=== PATIENT | female | born 1995 | race Caucasian/White ===

== ENCOUNTER → 2020-07-26 10:10 | Outpatient (BNVA) | payer MEDICAID, SELFPAY | PROVIDERS: PCP Family Medicine; Visit Provider Nurse Practitioner Women's Health | DX: Z34.90 Encounter for supervision of normal pregnancy, unspecified, unspecified trimester (principal) | CPT/HCPCS: 80053; 80307; 82950; 84315; 85027; 86592; 86762; 86803; 86850; 86900; 87340; 87806 ==

== ENCOUNTER 2021-01-27 12:34 | Outpatient (CLI) | payer MEDICAID, SELFPAY ==
[2021-01-27 12:52] VITALS: BP 132/76; PULSE 92
[2021-01-27 12:59] VITALS: RESP 18
[2021-01-27 13:00] VITALS: BMI 55.0
[2021-01-27 13:07] VITALS: TEMP 36.6
[2021-01-27 13:12] VITALS: BP 133/73; PULSE 87
== END 2021-01-27 13:40 | disposition home or self-care (01) ==
LOC: OPOB 12:38 → OBGYN 12:39
PROVIDERS: PCP Family Medicine; Visit Provider Family Medicine
DX: O24.419 Gestational diabetes mellitus in pregnancy, unspecified control (principal); Z3A.00 Weeks of gestation of pregnancy not specified
CPT/HCPCS: 59025; 99211

== ENCOUNTER 2021-02-03 11:10 | Outpatient (CLI) | payer MEDICAID, SELFPAY ==
[2021-02-03 11:55] VITALS: BP 124/73; PULSE 81
[2021-02-03 12:03] VITALS: RESP 18; TEMP 36.6; BMI 55.4
[2021-02-03 12:15] VITALS: BP 134/83; PULSE 82
== END 2021-02-03 12:21 | disposition home or self-care (01) ==
LOC: OPOB 11:27 → OBGYN 11:29
PROVIDERS: PCP Family Medicine; Visit Provider Family Medicine
DX: O24.419 Gestational diabetes mellitus in pregnancy, unspecified control (principal); Z3A.00 Weeks of gestation of pregnancy not specified
CPT/HCPCS: 59025; 99211

== ENCOUNTER 2021-02-10 10:51 | Outpatient (CLI) | payer MEDICAID, SELFPAY ==
[2021-02-10] VITALS (8 sets, daily range): BP systolic 142–152; BP diastolic 76–95; PULSE 76–87; RESP 22–222; TEMP 36.4–36.6; BMI 56.8
== END 2021-02-10 12:05 | disposition home or self-care (01) ==
LOC: OPOB 10:53 → OBGYN 10:54
PROVIDERS: PCP Family Medicine; Visit Provider Family Medicine
DX: O24.419 Gestational diabetes mellitus in pregnancy, unspecified control (principal); Z3A.00 Weeks of gestation of pregnancy not specified
CPT/HCPCS: 59025

== ENCOUNTER 2021-02-17 10:54 | Outpatient (CLI) | payer MEDICAID, SELFPAY ==
[2021-02-17 11:00] VITALS: BMI 57.0
[2021-02-17 11:26] VITALS: BP 139/80; PULSE 82
[2021-02-17 11:47] VITALS: BP 161/89; PULSE 93
[2021-02-17 11:48] VITALS: BP 151/85; PULSE 88
== END 2021-02-17 11:55 | disposition home or self-care (01) ==
LOC: OPOB 11:00 → OBGYN 11:16
PROVIDERS: PCP Family Medicine; Visit Provider Family Medicine
DX: O24.419 Gestational diabetes mellitus in pregnancy, unspecified control (principal); Z3A.00 Weeks of gestation of pregnancy not specified
CPT/HCPCS: 59025; 99211

== ENCOUNTER 2021-02-20 18:05 | Inpatient (IN) | payer MEDICAID, SELFPAY ==
[2021-02-20] VITALS (26 sets, daily range): BP systolic 108–200; BP diastolic 56–109; PULSE 84–101; RESP 16–18; O2SAT 100; BMI 57.7
[2021-02-20 18:59] LABS: Basophils % 0.4 %; Eosinophils # 0.1 10^3/uL (0.0-0.8); Eosinophils % 0.6 %; Hematocrit 36.2 % (37.0-47.0); Hemoglobin 12.1 g/dL (11.5-15.3); Lymphocytes # 2.6 10^3/uL (0.8-4.8); Lymphocytes % 24.2 %; Mean Corpuscular HGB Conc 33.4 g/dL (30.0-36.0); Mean Corpuscular Hemoglobin 29.8 pg (28.0-34.0); Mean Corpuscular Volume 89.2 fL (81-99); Monocytes # 0.7 10^3/uL (0.2-0.9); Monocytes % 6.3 %; Neutrophils % 68.1 %; Nucleated Red Blood Cells % 0 %; Platelet Count 284 10^3/cmm (130-400); Red Blood Count 4.06 10^6/uL (4.1-5.3); Red Cell Distribution Width 13.8 % (12.1-15.1); White Blood Count 10.9 10^3/uL (4.0-10.0)
[2021-02-20] MEDS: labetalol 5 mg/mL SDV 20mL 20 MG IVP (19:18)
[2021-02-20] MEDS: labetalol 5 mg/mL SDV 20mL 40 MG IVP (19:59)
[2021-02-20 20:14] LABS: Urine Creatinine 165 mg/dL (28-217)
[2021-02-20 20:25] LABS: Add Urine Microscopic? YES; Bilirubin Urine Neg (Negative); Blood Urine 2+ (Negative); Glucose Urine UA Norm (Normal); Ketones Urine Negative (Negative); Leukocyte Esterase Urine Trace (Negative); Nitrate Urine Negative (Negative); Protein Urine 3+ (Negative); Urine Appearance Hazy (CLEAR); Urine Color Yellow (Yellow); Urobilinogen Urine Norm (Negative); pH Urine 7 (5-7)
[2021-02-20 20:26] LABS: Squamous Epithelial Cell Urine 40-55 /hpf (0-5); WBC Urine 15-25 /hpf (0-5)
[2021-02-20 20:27] LABS: Add Urine Culture? No; Bacteria Urine TRACE /hpf
[2021-02-20 20:28] LABS: UPRO/UCREAT Ratio 2.42 mg/mg CR; Urine Protein Random 399 mg/dL
[2021-02-20] MEDS: fentaNYL 50 mcg/mL INJ 2mL IVP (21:20)
[2021-02-20 21:23] LABS: Alanine Aminotransferase 11 U/L (0-33); Alkaline Phosphatase 98 IU/L (35-105); Anion Gap 15.5 (5-19); Aspartate Amino Transferase 14 U/L (0-32); Blood Urea Nitrogen 6 mg/dL (6-20); Carbon Dioxide 21 mmol/L (22-29); Chloride 105 mmol/L (98-107); Globulin 2.1 g/dL (1.3-4.6); Glomerular Filtration Rate 266.9 mL/min (90-130); Glucose 118 mg/dL (65-115); Osmolality Calculated 285 mOsm/kg (285-295); Potassium 3.5 mmol/L (3.5-5.1); Sodium 138 mmol/L (136-145); Total Bilirubin 0.2 mg/dL (0.15-1.2); Total Protein 5.1 g/dL (6.6-8.7); Uric Acid 1.8 mg/dL (2.4-5.7)
[2021-02-20] MEDS: miSOPROStol 100 mcg tablet 25 MCG VAGINAL (21:30)
[2021-02-20] MEDS: magnesium sulfate premix 4 GM/100 ML PREMIX IV (21:47)
[2021-02-20] MEDS: dextrose 5%-lactated ringers 1,000 ML 125 ML IV (21:47)
[2021-02-20] MEDS: magnesium sulfate premix 20 GM/500 ML BAG IV (22:00)
[2021-02-20 22:03] LABS: Glucose Point of Care 118 mg/dL (70-110)
[2021-02-20 23:54] LABS: Magnesium Level (OB Only) 1.4 mg/dL (5.0-7.5)
[2021-02-21] VITALS (81 sets, daily range): BP systolic 111–217; BP diastolic 56–104; PULSE 69–109; RESP 16–18; TEMP 35.8–36.8; O2SAT 93–100
[2021-02-21] MEDS: miSOPROStol 100 mcg tablet 25 MCG VAGINAL (01:33)
[2021-02-21] MEDS: dextrose 5%-lactated ringers 1,000 ML 125 ML IV ×3 (01:35→23:33)
[2021-02-21 04:43] LABS: Magnesium Level (OB Only) 3.9 mg/dL (5.0-7.5)
[2021-02-21] MEDS: oxytocin 30 UNIT/500 ML BAG IV (06:30)
[2021-02-21] MEDS: magnesium sulfate premix 20 GM/500 ML BAG IV ×2 (06:36→18:18)
[2021-02-21 06:48] LABS: Glucose Point of Care 114 mg/dL (70-110)
--- NOTE | 2021-02-21 07:29 | P.HP_ITS ---
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 She arrived for induction because of her gestational diabetes. After arrival to hospital, she was noted to have a markedly elevated blood pressures. As result a preeclamptic panel was done, and she was found to have an abnormal protein creatinine ratio. As result she was put on the blood pressure protocol, and was placed on magnesium. Present Details : 1 Labs Rubella: Immune RPR: Negative GBS: Negative Review of Systems General: Reports: 10 or more systems reviewed and unremarkable except in HPI and below Const: Reports: fatigue; Denies: fever(s) Eyes: Denies: change in vision Card: Denies: chest pain Musc: Reports: back pain Garo/Lymph: Denies: easy bruising Medications/Allergies Home Medications Medication Instructions Recorded Confirmed Last Taken Type prenat.vits,yanet,qno-lflj-qayhr 1 tab PO DAILY 07/12/20 02/20/21 02/20/21 07:30 History glyburide 1.25 mg PO BID 01/27/21 02/20/21 02/20/21 07:30 History Allergies Allergy/AdvReac Type Severity Reaction Status Date / Time No Known Allergies Allergy Verified 02/21/21 13:05 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 PFSH: Medical History No pertinent past medical history neghx: htn,dm,thyroid,dvt/pe,herpes----- denies partner with herpes PCOS (polycystic ovarian syndrome) Surgical History Hx of fracture of clavicle Family History Family/Other Breast cancer Paternal aunt-- unknown dx age Diabetes Paternal Great Grandmother Heart disease Paternal Uncle Father Diabetes Heart disease Hypertension Grandmother Ovarian cancer, Onset Age: 30 PGM Grandfather Heart disease Paternal Hypertension Paternal Mother Hypertension Denies family history of Colon cancer Clotting disorder Bleeding disorder Uterine cancer Thyroid disease Stroke Social History Additional social history: - Tobacco use: Never Alcohol use: Never Drug use: Never Other Female Reproductive History: Date of Last Menstrual Period: 04/30/20 History History History 1 Term 0 Miscarriages/Ectopic 0 0 Living Children 0 Care DANIA Calculator Estimated Delivery Date Method Current WG Current Estimate 02/25/21 Ultrasound #1 39w 3d Other Estimates 02/19/21 LMP (Uncertain) 40w 2d Expected Delivery Route/Plan Vaginal Specific Issues/Plans * PCOS * OBESITY Vitals/I&O/Wt Last Vital Signs Pulse 83 02/21/21 07:15 Resp 18 02/21/21 03:49 BP 142/72 02/21/21 07:15 Pulse Ox 100 02/21/21 03:49 02/20/21 02/21/21 02/21/21 22:59 06:59 14:59 Intake Total 430 / 430 Output Total 40 / 40 380 / 420 Balance -40 / -40 50 / 10 Weight last 48 hrs Weight 326 lb Physical Exam Const: COMMON NORMALS: patient oriented x3 and alert GENERAL APPEARANCE: anxious HENMT: COMMON NORMALS: moist oral mucous membranes HEAD & SCALP: normal to inspection Chest: COMMONS NORMALS: normal inspection of the chest Resp: COMMON NORMALS: clear to auscultation bilaterally AUSCULTATION: clear to auscultation bilaterally Cardio: COMMON NORMALS: regular rate and regular rhythm RATE: regular rate RHYTHM: regular rhythm GI: INSPECTION: Yes normal to inspection and Yes other (Gravid) Extremity: COMMON NORMALS: normal to inspection GENERAL: Yes edema (Trace) Neuro: COMMON NORMALS: patient oriented x3, moves all extremities and no sensory deficits noted SENSORIUM/ORIENTATION: Yes alert Psych: COMMON NORMALS: mental status grossly normal Skin: COMMON NORMALS: no rashes or lesions noted GENERAL SKIN EXAM: no rashes or lesions noted Urinary Catheter Management^: [place] Latex Free: Cath Placed During This Visit: yes Urinary Catheter Date of Insertion: 02/20/21 Urinary Catheter Time of Insertion: 21:25 Data : 02/20/21 18:31 02/20/21 20:58 A&P Assessment and plan (1) 39 weeks gestation of : We are inducing the patient with Cytotec followed by Pitociin When the child's head becomes well applied, I will consider an amniotomy as well. Status: Acute (2) Preeclampsia: We have placed the patient on magnesium due to her blood pressures as well as her protein creatinine ratio. Thankfully she is not having any other symptoms of preeclampsia at this time. Status: Acute (3) Gestational diabetes: Her blood sugars have been well controlled. We will continue to monitor her blood sugars intermittently during her hospital stay we see numbers that are getting higher we will evaluate a more aggressive approach. Status: Acute Attestations Medical Necessity Statement*: The patient will require hospital stay for induction as well as a stay including magnesium. I anticipate she will be in the hospital for 2-3 more days depending on how well her induction goes. Coding Level of Care Code Acute Knockdown Man for Topher Fwd Exam Comprehensive Diagnoses 39 weeks gestation of Z3A.39 Preeclampsia O14.90 Gestational diabetes O24.419
[2021-02-21] MEDS: acetaminophen 325 mg Tablet 650 MG PO (08:05)
[2021-02-21] MEDS: fentaNYL 50 mcg/mL INJ 2mL IVP ×2 (08:33→10:17)
[2021-02-21] MEDS: lactated ringers 1,000 ML 999 ML IV ×2 (10:13→13:04)
--- NOTE | 2021-02-21 11:00 | ANES.PROC ---
Anesthesia Procedures Procedure/Date: 02/21/21 Epidural: Time Out Performed: Yes Consents Signed: Procedure Consent and NPO Consent Consent: requested by attending/covering physician, from patient, risks and benefits reviewed and patient agrees to proceed Lumbar Level: L3-L4 Epidural position: sitting Epidural procedure: sterile prep of area, 1% lidocaine to numb the area, 18 g needle, negative for paresthesia passed, neg for paresthesia, test dose given, 1.5% xylocaine 1:200k epi (5 cc), 0.2% Ropivacaine bolus ml (5 cc), placed PCEA, no systemic response, sterile dressing applied, L.U.D. no apparent complications and 0.2% Ropiavacaine @ mls/hr (13) Additional Comments: BRIAN at 6 cm, threaded to 12 cm. patient reports improvement in contraction pains
[2021-02-21 11:19] LABS: Magnesium Level (OB Only) 4.7 mg/dL (5.0-7.5)
[2021-02-21] MEDS: metoclopramide 5 mg/mL SDV 2 mL 10 MG IVP (13:02)
[2021-02-21] MEDS: citric acid-sodium citrate 30 mL UDC PO (13:02)
[2021-02-21] MEDS: famotidine 20 mg/2 mL INJ IVP (13:03)
--- NOTE | 2021-02-21 14:27 | PC.NURSE ---
PT IN OR
--- NOTE | 2021-02-21 14:56 | P.PCN_ITS ---
PACU note PACU note: VSS, Good respiratory effort, report to RURAL ELECTRIFICATION ENGINEER Post-Anesthesia Exam: awake
--- NOTE | 2021-02-21 14:56 | PM.PACU ---
PACU note PACU note: VSS, Good respiratory effort, report to CLIENT SERVICES ASSISTANT Post-Anesthesia Exam: awake
--- NOTE | 2021-02-21 16:27 | PC.NURSE ---
1500 pt remains i or in recovery phrase.
[2021-02-21 16:48] LABS: Magnesium Level (OB Only) 4.6 mg/dL (5.0-7.5)
--- NOTE | 2021-02-21 18:00 | ANE.PACU2 ---
Inpatient post-anesthesia follow up: Airway intact: Yes Vital signs: Temperature 97.8 F Pulse Rate 103 Respiratory Rate 18 Blood Pressure 147/68 Pulse Oximetry 96 Oxygen Delivery Me thod Room Air Oxygen Flow Rate Fraction of Inspir ed Oxygen Hydration adequate: Yes Nausea and vomiting: No Pain level: 3 Mental status: Baseline
--- NOTE | 2021-02-21 18:59 | PM.OP ---
Operative Report Date of procedure: February 21, 2021 Pre-op Diagnosis: 1. decelerations 2. Failure to progress Pre-op Diagnosis: 3. Gestational diabetes 4. Preeclampsia Post-op diagnosis: same Procedure Done: Lower transverse section Specimens removed/disposition: 1. Male with a weight of 7 pounds 1 ounce and Apgars of 5 7 and 8 2. Placenta with three-vessel cord delivered intact Pathology: none sent Surgeon: Florencio Espinoza Anesthesia: Epidural Estimated blood loss (mL): 1,200 Complications: None Condition: stable Disposition: floor (OB) Brief History: Refer to history and physical Procedure: The patient was brought back to the operating room where she was prepped and draped in usual sterile fashion. Anesthesia was found to be adequate. A transverse skin incision was then made approximately 4 cm below the umbilicus (above the pannus) with a #10 blade. I then dissected down to the underlying subcutaneous tissue until arriving at the prerectal fascia. The fascia was then nicked with the scalpel bilaterally. The fascial incisions were then carried laterally with Garcia scissors. Attention was then turned to the superior aspect of the incision which was grasped with kochers and tented up away from the underlying rectus abdominis muscles. The muscles were then dissected away from the fascia manually, and later with Garcia scissors. Attention was then turned to the inferior aspect of the incision, and the fascia was dissected away from the underlying muscle in similar fashion. The rectus abdominis muscles were then spread manually. The peritoneum was entered manually. Excellent visualization of the uterus was noted. The Daniel O was then used to further obtain visualization of the uterus. A lower transverse uterine incision was then made with a #10 blade. Upon arriving at the intrauterine cavity, the uterine incision was then extended manually. The infant was noted to be in vertex position, and firmly applied on the pelvic floor of the mother. After multiple attempts at dislodging the baby from the pelvic floor, I was able to deliver the bab. After delivery of the head, the mouth and nose were suctioned at the site of the incision. There was no meconium. There was no nuchal cord. The baby was then completely delivered and placed on the abdomen. The cord was cut and clamped. The baby was then handed to Dr. Mauricoi and the waiting nurse. The placenta was removed intact. The intrauterine cavity was cleansed of any remaining debris. I then carefully examined the incision and found a tear extending from the left lateral aspect of the incision extending downward onto the anterior aspect of the uterus. I used a ring forceps to grasp the apex of the tear and carefully reapproximated the tear up to the point of the original incision. The uterine incision was reapproximated in 2 layers. The first layer was performed with 0 Vicryl in a running locked stitch. The second layer was an imbricating stitch also using 0 Vicryl. I then carefully examined repair to tear and uterine incision and found excellent hemostasis.. The peritoneum was then irrigated with warm saline. I reexamined the uterine incision, and tear and found it to be hemostatic. The fascia was then reapproximated using 0 Vicryl in running stitch. A SKY drain was then put in place. A running stitch was then used to reapproximate the subcutaneous tissue. The skin was reapproximated with a running stitch using a Ezekiel needle.. A sterile dressing was placed. All counts were correct x2. Both the mother and baby were in stable condition. Associated Problem List Diagnoses (1) Gestational diabetes: (2) Preeclampsia: (3) 39 weeks gestation of : (4) heart rate decelerations affecting management of mother: (5) Failure to progress in labor:
[2021-02-21 19:20] LABS: Glucose Point of Care 122 mg/dL (70-110)
[2021-02-21 22:48] LABS: Glucose Point of Care 132 mg/dL (70-110)
[2021-02-21] MEDS: ketorolac 30 mg/mL INJ IVP (23:32)
[2021-02-22] VITALS (14 sets, daily range): BP systolic 96–149; BP diastolic 50–90; PULSE 92–119; RESP 16–18; TEMP 36.6–37.1; O2SAT 94–96
[2021-02-22 03:42] LABS: Hematocrit 28.8 % (37.0-47.0); Hemoglobin 9.5 g/dL (11.5-15.3); Mean Corpuscular Hemoglobin 30.4 pg (28.0-34.0); Mean Platelet Volume 11.2 fL (7.4-10.4); Platelet Count 228 10^3/cmm (130-400); Red Blood Count 3.13 10^6/uL (4.1-5.3); Red Cell Distribution Width 14.4 % (12.1-15.1); White Blood Count 13.7 10^3/uL (4.0-10.0)
[2021-02-22 04:10] LABS: Magnesium Level (OB Only) 4.9 mg/dL (5.0-7.5)
[2021-02-22] MEDS: magnesium sulfate premix 20 GM/500 ML BAG IV (04:29)
--- NOTE | 2021-02-22 07:25 | PM.OBGYPN ---
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 She is also on magnesium at 2 g an hour. She has done remarkably well overnight. Her bleeding has been within normal limits. She has been breast-feeding. Her blood pressures have improved but are still elevated. Overall she has done better than expected. Labor: Station: -3 Vitals/I&O/Wt Last Vital Signs Temp 97.5 F L 02/21/21 22:30 Pulse 99 02/22/21 06:00 Resp 16 02/22/21 06:00 BP 145/90 02/22/21 06:00 Pulse Ox 96 02/22/21 06:00 02/21/21 02/22/21 02/22/21 22:59 06:59 14:59 Intake Total 1060 / 4816.317 440 / 5256.317 Output Total 781 / 2501 630 / 3131 Balance 279 / 2315.317 -190 / 2125.317 Weight last 48 hrs Weight 326 lb Physical Exam Narrative: EXAM NARRATIVE: She is in no acute distress Lungs are clear auscultation bilaterally Her heart has a regular rate and rhythm Her fundus is below the umbilicus and firm Her dressing is clean, dry and intact Her extremities have 1+ edema Urinary Catheter Management^: [place] Latex Free: Cath Placed During This Visit: yes Reason for Continuing Indwelling Catheter: Accurate Measurement of Urinary Output in Critically Ill Patients Urinary Catheter Date of Insertion: 02/20/21 Urinary Catheter Time of Insertion: 21:25 Data : 02/22/21 03:30 02/20/21 20:58 Other data: This morning her white blood count was 13.7 with a hemoglobin of 9.5 and a platelet count of 228. Her blood sugars have all been less than 140. A&P Assessment and plan (1) Preeclampsia: Patient is still on magnesium for 24 hours post delivery. Overall she has done very well. There have been no problems. After she passes flatus we will consider advancing her diet. Status: Acute (2) Gestational diabetes: Status: Acute (3) Status post : Status: Acute Attestations Medical Necessity Statement*: If the patient continues to do well she may be able to be discharged home tomorrow. Coding Level of Care Code Acute Delivery Driver/Customer Service for [facility] Juan C Diagnoses Preeclampsia O14.90 Gestational diabetes O24.419 Status post Z98.891
[2021-02-22] MEDS: prenatal vitamin Capsule 1 CAP PO (10:03)
[2021-02-22] MEDS: ferrous sulfate EC 325 mg Tablet PO ×2 (10:03→17:26)
[2021-02-22] MEDS: docusate sodium 100 mg Capsule PO (10:03)
[2021-02-22 10:05] LABS: Glucose Point of Care 138 mg/dL (70-110)
[2021-02-22] MEDS: HYDROcodone-acetaminophen 5-325 mg Tablet PO ×2 (11:06→17:27)
[2021-02-22] MEDS: ibuprofen 800 mg tablet PO ×2 (11:06→17:26)
[2021-02-22] MEDS: dextrose 5%-lactated ringers 1,000 ML 125 ML IV (12:37)
--- NOTE | 2021-02-22 19:00 | PC.NURSE ---
SKY drain output
[2021-02-22 22:53] LABS: Glucose Point of Care 121 mg/dL (70-110)
[2021-02-23] MEDS: HYDROcodone-acetaminophen 5-325 mg Tablet PO ×3 (03:43→13:14)
[2021-02-23 05:00] VITALS: BP 149/79; PULSE 93; RESP 17; O2SAT 95
--- NOTE | 2021-02-23 07:00 | PC.NURSE ---
SKY drain output
[2021-02-23] MEDS: ferrous sulfate EC 325 mg Tablet PO (08:40)
[2021-02-23] MEDS: ibuprofen 800 mg tablet PO ×2 (08:40→15:53)
[2021-02-23] MEDS: prenatal vitamin Capsule 1 CAP PO (08:40)
[2021-02-23 09:40] VITALS: BP 153/72; PULSE 98; RESP 16; TEMP 37.1
--- NOTE | 2021-02-23 17:58 | PM.OBGYDC ---
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 As a part of her intake she was noted to have a high blood pressure, and a protein creatinine ratio was done which was found to be elevated as well. She then had a full preeclamptic panel performed. We put her on the hypertension protocol. She was placed on Cytotec. Then an amniotomy was performed. She had epidural placed. Pitocin was also used to augment labor.. During this process the infant demonstrated multiple episodes of decelerations. Her cervix slowly changed to 3 cm dilated., And stagnated at 3 cm dilated for over 4 hours. Given the infant's tendency towards decelerations, and the mother's lack of change, the decision was made to proceed with a section. The was performed and was unremarkable. Her course was also relatively unremarkable. Her blood pressures remained somewhat high despite IV treatment. Her systolic blood pressure was in the 140s 150s. Her blood sugars were in the 140s or less overall. Her post operative course was relatively unremarkable. She ambulated reasonably. She passed flatus. Her diet was advanced without difficulty. She was on magnesium sulfate for 24 hours post delivery. Her bleeding was within normal limits. She struggled with breast-feeding at first, but ultimately was able to do better with a nipple shield. The Mejia-Armstrong drain was removed on the second postoperative day and demonstrated a continual decline in fluid. Information Peripartum Data: Infant Delivery Method: Physical Exam Narrative: EXAM NARRATIVE: She is in no acute distress Lungs are clear auscultation bilaterally Her heart has a regular rate and rhythm Her fundus is below the umbilicus and firm Her dressing is clean, dry and intact Her extremities have trace edema The Mejia-Armstrong drain has 15 cc of serosanguineous fluid has not been changed for over 6 hours. Urinary Catheter Management^: [place] Latex Free: Cath Placed During This Visit: yes, but has since been removed by the nurse Reason for Continuing Indwelling Catheter: Decision to DC Catheter Urinary Catheter Date of Insertion: 02/20/21 Urinary Catheter Time of Insertion: 21:25 Date Urinary Catheter Removed: 02/22/21 Time Urinary Catheter Discontinued: 14:15 Discharge Data Data Completed and Pending: Labs from last 24 hours 02/22/21 22:48 POC Glucose 121 H Vitals: Last Vital Signs Temp 98.8 F 02/23/21 09:40 Pulse 98 02/23/21 09:40 Resp 16 02/23/21 09:40 BP 153/72 02/23/21 09:40 Pulse Ox 95 02/23/21 05:00 Discharge Plan Discharge Patient Disposition: Home Condition: Stable Prescriptions: New ibuprofen 800 mg Tablet 800 mg PO TID Qty: 45 RF: 0 hydrocodone-acetaminophen 5-325 mg Tablet 1 - 2 tab PO Q4H PRN (Reason: Moderate To Severe Pain) Qty: 30 RF: 0 DOK 100 mg Capsule 100 mg PO BID Qty: 14 RF: 0 Continued prenat.vits,yanet,bzh-duor-kqacl Tablet 1 tab PO DAILY RF: 0 Discontinued glyburide 1.25 mg Tablet 1.25 mg PO BID RF: 0 Discharge Orders: Discharge Order (Routine); Ordered 02/23/21 Ordered By: Florencio Espinoza Referrals: Florencio Espinoza MD [Physician] - 03/03/21 11:30 am (Also set up an appointment for 6-week follow-up) Discharge Diet: Diabetic Discharge Activity: Limit activity as instructed Patient Instructions: , Your Baby (GEN), and the Working Mom (GEN), How to Hold and Breastfeed Your Baby (GEN), and Nipple Soreness (GEN), and Plugged Ducts (GEN), Pre-eclampsia and Eclampsia (GEN), OB - Alexis/Aga, OB Discharge Report, OB Food/Drug Interaction Guide, Opioid Safety, Abnormal Bleeding, Depression Discharge Attestations HOUSEHOLD APPLIANCE REPAIRER Time Spent in Discharge Care*: less than 30 min Coding Level of Care Code Acute Blood Collector for Chg Fwd Diagnoses Preeclampsia O14.90 Gestational diabetes O24.419 Status post Z98.891
== END 2021-02-23 16:15 | disposition home or self-care (01) | DRG 788 ==
PROVIDERS: Admitting Provider Family Medicine; PCP Family Medicine; Visit Provider Family Medicine
PROC: 10D00Z1 Extraction of Products of Conception, Low, Open Approach (ICD-10-PCS; CPT 59514; principal; 2021-02-21 13:10)
DX: O76 Abnormality in fetal heart rate and rhythm complicating labor and delivery (principal); O32.4XX0 Maternal care for high head at term, not applicable or unspecified; O24.425 Gestational diabetes mellitus in childbirth, controlled by oral hypoglycemic drugs; O14.94 Unspecified pre-eclampsia, complicating childbirth; O99.284 Endocrine, nutritional and metabolic diseases complicating childbirth; E28.2 Polycystic ovarian syndrome; Z3A.39 39 weeks gestation of pregnancy; Z37.0 Single live birth
CPT/HCPCS: 12345; 36415; 36416; 51702; 59025; 80053; 81001; 82570; 82962; 83735; 84156; 84550; 85025; 85027; 98960; 99211; J0690; J1885; J2274; J2405; J2765; J2795; J3010; J3475; J3490

== ENCOUNTER 2021-02-27 09:18 | Emergency (ER) | payer MEDICAID, SELFPAY ==
[2021-02-27 09:26] VITALS: BP 198/107; PULSE 102; RESP 18; TEMP 36.7; O2SAT 96; BMI 56.7
--- NOTE | 2021-02-27 09:46 | W.ED.WOUNDLC ---
HPI - Wound/Laceration General: Chief Complaint: Wound/Laceration Stated Complaint: C Section Incision Reopened Time Seen by Provider: 02/27/21 09:21 History of Present Illness: HPI narrative: 5-year-old female who is 6 days postop section. She has some dehiscence of her wound. She initially had a Mejia-Armstrong in place that was removed and now she started getting serous drainage the left lateral portion of the wound is dehisced she not had any fever sweats or chills because the holidays she was not able to get into see her doctor so she presented here. She denies any purulent drainage no dysuria urgency or frequency. She did have preeclampsia and gestational diabetes during previous . Onset (ago): day(s) Location: abdomen Place: home Context: other (Surgical incision site) Associated symptoms: Denies chills, fever(s), foreign body sensation, inability to move, nausea, numbness, pain, syncope or vomiting Review of Systems Const: Denies: fever(s) or chills ENMT: Denies: throat pain, ear or mastoid pain, nasal discharge or nasal congestion Card: Denies: syncope Resp: Denies: dyspnea, productive cough or non-productive cough GI: Denies: nausea or vomiting : Denies: flank pain, difficulty voiding, dysuria, urinary frequency or urinary urgency Skin/Breast: Denies: rash or pruritus PFSH ED PFSH: Medical History No pertinent past medical history neghx: htn,dm,thyroid,dvt/pe,herpes----- denies partner with herpes PCOS (polycystic ovarian syndrome) Surgical History (Updated 02/27/21 @ 09:57 by Vince Nunez DO) Hx of fracture of clavicle Family History Family/Other Breast cancer Paternal aunt-- unknown dx age Diabetes Paternal Great Grandmother Heart disease Paternal Uncle Father Diabetes Heart disease Hypertension Grandmother Ovarian cancer, Onset Age: 30 PGM Grandfather Heart disease Paternal Hypertension Paternal Mother Hypertension Denies family history of Colon cancer Clotting disorder Bleeding disorder Uterine cancer Thyroid disease Stroke Social History Additional social history: - Tobacco use: Never Alcohol use: Never Drug use: Never Female Reproductive History: Date of last menstrual period: 05/15/20 Physical Exam Const: COMMON NORMALS: no acute distress GENERAL APPEARANCE: cooperative and comfortable ORIENTATION/CONSCIOUSNESS: Yes awake, Yes oriented to person, Yes oriented to place and Yes oriented to time HENMT: COMMON NORMALS: normocephalic, atraumatic and hearing grossly normal bilaterally HEAD & SCALP: normocephalic and atraumatic Neck/C-Spine: COMMON NORMALS: no JVD Resp: COMMON NORMALS: normal respiratory effort, No retractions, No use of accessory muscles and clear to auscultation bilaterally AUSCULTATION: clear to auscultation bilaterally Cardio: COMMON NORMALS: no JVD, regular rate, regular rhythm and No murmurs present (Cardio) RATE: regular rate RHYTHM: regular rhythm GI: COMMON NORMALS: Soft to palpation and No hepatosplenomegaly present AUSCULTATION: Yes normoactive bowel sounds PALPATION: Yes Soft to palpation, No Tenderness to palpation present (GI), No Guarding due to palpation present (GI) and Yes No hepatosplenomegaly present OTHER: Dehiscence with exposure of subcu sutures in the left lateral side. There is no active drainage some mild anasarca but there is no erythema no purulent drainage patient has a OB pad taped on the inside of her pants which has serous drainage on it. Extremity: COMMON NORMALS: normal to inspection, capillary refill normal, no clubbing, cyanosis or edema, no calf tenderness and no pedal edema Neuro: SENSORIUM/ORIENTATION: Yes oriented to person, Yes oriented to place and Yes oriented to time Skin: COMMON NORMALS: no rashes or lesions noted GENERAL SKIN EXAM: no rashes or lesions noted Course Vital Signs: Vital signs: Vital Signs Temperature 98.1 F 02/27/21 09:26 Pulse Rate 102 H 02/27/21 09:26 Respiratory Rate 18 02/27/21 09:26 Blood Pressure 198/107 02/27/21 09:26 Pulse Oximetry 96 02/27/21 09:26 MDM - Wound/Laceration MDM Narrative: Medical decision making narrative: Pressures improved. Admitted started on spinal hypertensives as she was quite elevated when she came in. Her follow-up with Dr. Espinoza in 2 days I talked to him about her since she was a postop patient as far as the wound goes continue to keep topical dressings in place for the serous drainage apply topical antibiotic as needed will have to heal by secondary intent there is some swelling in the lower portion of the pannus but there is no evidence of infection there is no purulent drainage and no erythema or redness at this point. With a normal white count would not put her on antibiotics. Should recheck blood pressure with her primary care in a couple of days on follow-up. Lab Data: Labs: Lab Results 02/27/21 Range/Units 09:43 WBC 7.1 (4.0-10.0) 10^3/ uL RBC 3.25 L (4.1-5.3) 10^6/u L Hgb 9.8 L (11.5-15.3) g/dL Hct 29.1 L (37.0-47.0) % MCV 89.5 (81-99) fL MCH 30.2 (28.0-34.0) pg MCHC 33.7 (30.0-36.0) g/dL RDW 13.9 (12.1-15.1) % Plt Count 385 (130-400) 10^3/c mm MPV 9.8 (7.4-10.4) fL Neut % (Auto) 62.1 % Lymph % (Auto) 26.1 % Hamlin % (Auto) 7.8 % Eos % (Auto) 3.0 % Baso % (Auto) 0.6 % Neut # (Auto) 4.40 (1.8-7.7) 10^3/u L Lymph # (Auto) 1.9 (0.8-4.8) 10^3/u L Hamlin # (Auto) 0.6 (0.2-0.9) 10^3/u L Eos # (Auto) 0.2 (0.0-0.8) 10^3/u L Baso # (Auto) 0.0 (0.0-0.1) 10^3/u L Nucleated RBC % (a uto) 0 % Nucleated RBCs # 0.0 /100WBC Discharge Plan Discharge Patient Disposition: Home Clinical Impression: Abdominal wound dehiscence, S/P , hypertension Condition: Stable Prescriptions: New amlodipine 5 mg tablet 5 mg PO DAILY Qty: 20 RF: 0 Toprol XL 25 mg tablet extended release 24 hr 25 mg PO DAILY Qty: 20 RF: 0 mupirocin 2 % ointment 1 applic topical BID Qty: 22 RF: 0 No Action prenat.vits,yanet,uzh-eexe-balyr Tablet 1 tab PO DAILY RF: 0 ibuprofen 800 mg Tablet 800 mg PO TID Qty: 45 RF: 0 hydrocodone-acetaminophen 5-325 mg Tablet 1 - 2 tab PO Q4H PRN (Reason: Moderate To Severe Pain) Qty: 30 RF: 0 DOK 100 mg Capsule 100 mg PO BID Qty: 14 RF: 0 Discharge Orders: Discharge ED (Routine); Ordered 02/27/21 Ordered By: Vince Nunez Referrals: Jeanna Corrigan DO [Primary Care Provider] - Discharge Diet: Usual diet Discharge Activity: Increase activity as tolerated Patient Instructions: Opioid Safety Coding Level of Care Code ED District Representative for Chg Fwd Exam Comprehensive
[2021-02-27 09:50] LABS: Basophils % 0.6 %; Eosinophils # 0.2 10^3/uL (0.0-0.8); Hematocrit 29.1 % (37.0-47.0); Hemoglobin 9.8 g/dL (11.5-15.3); Lymphocytes # 1.9 10^3/uL (0.8-4.8); Lymphocytes % 26.1 %; Mean Corpuscular HGB Conc 33.7 g/dL (30.0-36.0); Mean Corpuscular Hemoglobin 30.2 pg (28.0-34.0); Mean Corpuscular Volume 89.5 fL (81-99); Mean Platelet Volume 9.8 fL (7.4-10.4); Monocytes # 0.6 10^3/uL (0.2-0.9); Monocytes % 7.8 %; Neutrophils % 62.1 %; Nucleated Red Blood Cells % 0 %; Platelet Count 385 10^3/cmm (130-400); Red Blood Count 3.25 10^6/uL (4.1-5.3); Red Cell Distribution Width 13.9 % (12.1-15.1); White Blood Count 7.1 10^3/uL (4.0-10.0)
[2021-02-27] MEDS: amlodipine 5 mg Tablet PO (10:22)
[2021-02-27] MEDS: metoprolol tartrate 1 mg/1 mL SDV 5 mL 5 MG IV (10:23)
[2021-02-27] MEDS: hyDRALAzine 20 mg/mL INJ 1 mL 10 MG IVP (10:23)
[2021-02-27 11:34] VITALS: BP 135/79; PULSE 96; RESP 20; O2SAT 98
== END 2021-02-27 11:26 | disposition home or self-care (01) ==
PROVIDERS: Emergency Provider Family Medicine; PCP Family Medicine
DX: O90.0 Disruption of cesarean delivery wound (principal); O16.5 Unspecified maternal hypertension, complicating the puerperium
CPT/HCPCS: 85025; 96374; 96375; 99283; J0360; J3490

== ENCOUNTER 2022-06-06 17:20 | Emergency (ER) | payer MEDICAID, SELFPAY ==
[2022-06-06 17:58] VITALS: BP 127/88; PULSE 107; RESP 18; TEMP 36.8; O2SAT 96
--- NOTE | 2022-06-06 18:04 | XRR_ITS ---
PROCEDURE INFORMATION: Exam: XR Right Wrist Exam date and time: 06/06/2022 6:12 PM Age: 26 years old Clinical indication: Pain; Right; Patient HX: Dog bite RT. Wrist; Additional info: Injury TECHNIQUE: Imaging protocol: Radiologic exam of the Right wrist. Views: 3 or more views. COMPARISON: No relevant prior studies available. FINDINGS: Bones/joints: See Soft tissues finding. Soft tissues: Soft tissue swelling about the wrist suspected without fracture, dislocation or radiodense foreign body. XR/XR wrist RT min 3V* [id number] IMPRESSION: Soft tissue swelling about the wrist suspected without fracture, dislocation or radiodense foreign body.
--- NOTE | 2022-06-06 18:11 | W.ED.ANIMALB ---
HPI - Animal Bite General: Chief Complaint: Animal Bite Stated Complaint: dog bite Time Seen by Provider: 06/06/22 18:03 History of Present Illness: 26-year-old female comes in today with injury to the right wrist and the left abdomen. Patient reports that their 7-year-old dog was trying to harm the cat when her boyfriend tried to break them apart the dog attacked him. Patient then attempted to pull the dog off and also received injuries to the right wrist and left abdomen. Patient has a puncture wound to the right wrist ulnar side, and a abrasion to the left lower abdomen. Review of Systems General: Reports: 10 or more systems reviewed and unremarkable except in HPI and below Card: Denies: chest pain Resp: Denies: dyspnea Skin/Breast: Reports: new lesions PFS ED PFSH: Medical History No pertinent past medical history neghx: htn,dm,thyroid,dvt/pe,herpes----- denies partner with herpes PCOS (polycystic ovarian syndrome) Surgical History (Updated 03/07/21 @ 00:01 by ) Hx of fracture of clavicle Family History Family/Other Breast cancer Paternal aunt-- unknown dx age Diabetes Paternal Great Grandmother Heart disease Paternal Uncle Father Diabetes Heart disease Hypertension Grandmother Ovarian cancer, Onset Age: 30 PGM Grandfather Heart disease Paternal Hypertension Paternal Mother Hypertension Denies family history of Colon cancer Clotting disorder Bleeding disorder Uterine cancer Thyroid disease Stroke Social History Additional social history: - Tobacco use: Never Alcohol use: Never Drug use: Never Female Reproductive History: Date of last menstrual period: 05/15/20 Physical Exam Const: COMMON NORMALS: alert HENMT: COMMON NORMALS: normocephalic HEAD & SCALP: normocephalic Neck/C-Spine: COMMON NORMALS: full ROM Chest: COMMONS NORMALS: normal inspection of the chest Resp: COMMON NORMALS: normal respiratory effort Cardio: COMMON NORMALS: regular rhythm RHYTHM: regular rhythm GI: INSPECTION: Yes Laceration(s) present (GI) (Superficial left lower abdomen, surrounding ecchymosis) RECTAL EXAM: Laceration(s) present (GI) (Superficial left lower abdomen, surrounding ecchymosis) Back/Pelvis: COMMON NORMALS: thoracic and lumbar spine normal to inspection Extremity: RIGHT UPPER EXTREMITY: Yes wrist (Ulnar puncture wound, mild swelling.) Neuro: SENSORIUM/ORIENTATION: Yes alert Skin: TRAUMA: abrasion (Left lower abdomen), laceration (Superficial linear left lower abdomen) and puncture (Right ulnar wrist) Course Vital Signs: Vital signs: Vital Signs Temperature 98.3 F 06/06/22 17:58 Pulse Rate 107 H 06/06/22 17:58 Respiratory Rate 18 06/06/22 17:58 Blood Pressure 127/88 06/06/22 17:58 Pulse Oximetry 96 06/06/22 17:58 Oxygen Delivery Me thod 06/06/22 17:58 MDM - Animal Bite Medical Decision Making 26-year-old female comes in today for injury sustained from a dog attack. On exam patient has injury to the right wrist with a puncture wound on the ulnar dorsal aspect. Patient is got stiffness in the joint but is able to use her hand and elbow without difficulty. Patient also has an abrasion to the left lower abdomen from linear superficial laceration. Differential diagnosis includes need for prophylaxis tetanus, need for antibiotics, soft tissue injury, fracture. Immunizations are not pet was up-to-date. The pet was the patient's dog. X-rays noted no fractures, dislocation or foreign body. Reviewed exam with patient with recommendations for treatment and allow for secondary intention healing without sutures. Patient be started on oral antibiotics for broad-spectrum coverage with Augmentin. Patient reported understanding of care plan need for follow-up or return to the ER. Lab Data Radiology Impressions Wrist X-Ray 06/06/22 18:04 IMPRESSION: Soft tissue swelling about the wrist suspected without fracture, dislocation or radiodense foreign body. Discharge Plan Discharge Patient Disposition: Home Clinical Impression: Dog bite Qualifiers: Encounter type: initial encounter Qualified Code(s): W54.0XXA - Bitten by dog, initial encounter Condition: Stable Prescriptions: New amoxicillin-pot clavulanate 875-125 mg tablet 1 tab PO BID Qty: 14 0RF Continued ibuprofen 800 mg Tablet 800 mg PO TID Qty: 45 0RF mupirocin 2 % ointment 1 applic topical BID Qty: 22 0RF Changed hydrocodone-acetaminophen 5-325 mg Tablet 1 tab PO Q4H PRN (Reason: Moderate To Severe Pain) Qty: 10 0RF No Action prenat.vits,yanet,tep-bkxn-wusjm Tablet 1 tab PO DAILY DOK 100 mg Capsule 100 mg PO BID Qty: 14 0RF amlodipine 5 mg tablet 5 mg PO DAILY Qty: 20 0RF Toprol XL 25 mg tablet extended release 24 hr 25 mg PO DAILY Qty: 20 0RF Discharge Orders: Discharge ED (Routine); Ordered 06/06/22 Ordered By: Sourav Cisneros Referrals: Florencio Espinoza MD [Primary Care Provider] - Discharge Diet: Usual diet Discharge Activity: Increase activity as tolerated Patient Instructions: Puncture Wound (ED) Activity Restrictions/Additional Instructions: Keep wounds clean and dry. Use acetaminophen and ibuprofen to control pain. Drink plenty of water with medication. Take amoxicillin 1 tablet twice a day for the next 7 days for antibiotic prophylaxis. Use antibiotic ointment twice a day to the wounds until healed. Use hydrocodone for severe pain. Follow-up with primary care for further instruction. Return to ED for new concerns. Coding Level of Care Code ED Senior Patient Account Representative for [facility] Fwd Exam Expanded Problem Focused
[2022-06-06] MEDS: amoxicillin-clav 875-125 mg Tablet 1 TAB PO (18:30)
[2022-06-06] MEDS: HYDROcodone-acetaminophen 5-325 mg Tablet 1 TAB PO (18:31)
[2022-06-06] MEDS: bacitracin ointment Pkt 1 EACH TOPICAL (19:07)
== END 2022-06-06 19:09 | disposition home or self-care (01) ==
PROVIDERS: Emergency Provider Nurse Practitioner Family; PCP Family Medicine
DX: S61.551A Open bite of right wrist, initial encounter (principal); W54.0XXA Bitten by dog, initial encounter
CPT/HCPCS: 73110; 99283